=== PATIENT | female | born 1985 | race Caucasian/White ===

== ENCOUNTER 2019-05-22 06:37 | Emergency (ER) | payer OTHER ==
[~2019-05-22] VITALS: Ht 170.2 cm; Wt 83.9 kg
[2019-05-22] MEDS ORDERED: LARIN FE 1.5-31 EACH PO (07:06)
[2019-05-22] MEDS ORDERED: Citalopram HBr20 MG PO (07:07)
[2019-05-22 07:23] LABS: Source, Urine Clean Catch
[2019-05-22 07:30] LABS: BASOPHILS ABSOLUTE AUTO 0.03 K/mm3 (0.00-0.23); BASOPHILS PERCENT AUTO 0 % (0-2); Bilirubin, Urine Neg (Neg); Blood, Urine Neg (Neg); EOSINOPHILS ABSOLUTE AUTO 0.03 K/mm3 (0.00-0.68); EOSINOPHILS PERCENT AUTO 0 % (0-6); Glucose Qualitative, Urine Neg (Neg); Hematocrit 41.8 % (33.0-51.0); Hemoglobin 13.7 g/dL (11.5-16.0); IMMATURE GRAN ABSOLUTE AUTO 0.03 K/mm3 (0.00-0.10); IMMATURE GRAN PERCENT AUTO 0 % (0-1); Ketones, Urine Neg (Neg); LYMPHOCYTES ABSOLUTE AUTO 1.55 K/mm3 (0.84-5.20); LYMPHOCYTES PERCENT AUTO 18 % (21-46); Leukocyte Esterase, Urine Neg (Neg); MONOCYTES ABSOLUTE AUTO 0.51 K/mm3 (0.16-1.47); MONOCYTES PERCENT AUTO 6 % (4-13); Mean Corpuscular HGB 27.1 pg (26.0-34.0); Mean Corpuscular HGB Conc 32.8 g/dL (31.5-36.5); Mean Corpuscular Volume 83 fL (80-100); Mean Platelet Volume 11.1 fL (9.1-12.4); NEUTROPHILS ABSOLUTE AUTO 6.41 K/mm3 (1.96-9.15); NEUTROPHILS PERCENT AUTO 75 % (41-73); Nitrite, Urine Neg (Neg); Platelet Count 294 K/mm3 (150-400); Protein, Urine Neg (Neg); RDW Standard Deviation 41.9 fL (35.1-46.3); Red Blood Cell Count 5.06 M/mm3 (3.80-5.20); Specific Gravity, Urine 1.015 (1.003-1.022); Urobilinogen, Urine NORM (Normal); White Blood Cell Count 8.56 K/mm3 (4.00-11.30)
[2019-05-22 07:31] LABS: Appearance, Urine Clear (Clear)
[2019-05-22 07:32] LABS: Color, Urine Yellow (P-Yellow)
[2019-05-22 07:48] LABS: Alanine Aminotransfer (ALT/SGP 147 U/L (12-78); Albumin, Blood 3.3 g/dL (3.4-5.0); Albumin/Globulin Ratio 0.9 (0.8-1.8); Alk Phos 116 U/L (50-136); Anion Gap 6 mmol/L (6-16); Aspartate Aminotrans (AST/SGOT 158 U/L (12-37); Bilirubin, Total 0.3 mg/dL (0.1-1.0); Blood Urea Nitrogen 13 mg/dL (8-24); Bun/Creatinine Ratio 21.9 (12.0-20.0); CO2, Blood 26 mmol/L (21-32); Calcium, Blood 8.3 mg/dL (8.5-10.1); Chloride, Blood 109 mmol/L (98-108); Creatinine, Blood 0.59 mg/dL (0.40-1.00); Globulin, Blood 3.6 g/dL (2.2-4.0); Glomerular Filtration Rate >60 (60-); Glucose, Blood 95 mg/dL (70-99); Potassium, Blood 4.1 mmol/L (3.5-5.5); Sodium, Blood 141 mmol/L (136-145); Total Protein, Blood 6.9 g/dL (6.4-8.2)
[2019-05-22] MEDS ORDERED: Protonix40 MG PO (08:39)
[2019-06-13] MEDS ORDERED: Junel Fe 1.5-31 EACH PO (10:23)
== END 2019-05-22 09:01 | disposition home or self-care (01) ==
LOC: ER 06:37
PROVIDERS: Emergency Medicine
DX: K80.50 Calculus of bile duct without cholangitis or cholecystitis without obstruction (principal); Z79.899 Other long term (current) drug therapy
CPT/HCPCS: 36415; 76705; 80053; 81003; 83690; 84703; 85025; 99284-25

== ENCOUNTER 2019-06-21 06:06 | Day surgery (SDC) | payer OTHER ==
[~2019-06-21] VITALS: Ht 170.2 cm; Wt 77.9 kg
[~2019-06-21 06:06] MED LIST: Citalopram HBr20 MG PO; Junel Fe 1.5-31 EACH PO; LARIN FE 1.5-31 EACH PO; Protonix40 MG PO
--- NOTE | 2019-06-21 09:49 | NUR ---
06/21/19 0949 Eliza Arzate RN RECIEVED REPORT FROM [facility].C AT 0940 PT IS RESTING IN THE RECLINER AT THIS TIME. VSS. PT ACCOMPANIED BY MOM AND DAD. PT DENIES NAUSEA AND IS TOLERATING PO FLUIDS AND COOKIES WELL. PT STATES HER PAIN IS 2/10 AND TOLERABLE AT THIS TIME. RN PROVIDED TEACHING ON THE INCENTIVE SPIROMETER. PT DEMONSTRATED THE INCENTIVE SPIROMETER X3. WRITTEN DISCHARGE INSTRUCTIONS PROVIDED FOR PT TO TAKE HOME.
== END 2019-06-21 11:00 | disposition home or self-care (01) ==
LOC: ORSCSDS 06:06
PROVIDERS: Surgery
PROC: BF031ZZ Plain Radiography of Gallbladder and Bile Ducts using Low Osmolar Contrast (ICD-10-PCS; principal; 2019-06-21 07:30)
PROC: 0FT44ZZ Resection of Gallbladder, Percutaneous Endoscopic Approach (ICD-10-PCS; principal; 2019-06-21 07:30)
DX: K80.11 Calculus of gallbladder with chronic cholecystitis with obstruction (principal)
CPT/HCPCS: 88304; C1729; J0690; J1100; J2250; J2405; J2704; J2710; J3010; J7120

== ENCOUNTER → 2024-03-04 | Outpatient (CLI) | payer OTHER | LOC: LAB SHORT 08:35 → LAB 08:35 | DX: M67.471 Ganglion, right ankle and foot (principal) | CPT/HCPCS: 88304 ==

== ENCOUNTER → 2024-07-11 | Outpatient (CLI) | payer OTHER | LOC: LAB 08:56 → LAB SHORT 08:56 | DX: N84.1 Polyp of cervix uteri (principal) | CPT/HCPCS: 88305 ==